=== PATIENT | female | born 1965 | race Caucasian/White ===

== ENCOUNTER 2017-03-27 08:22 | Day surgery (SDC) | payer OTHER ==
[2017-03-23 15:40] VITALS: BMI 40.6
[~2017-03-27 08:22] MED LIST: LACTATED RINGERS 1,000 ML IV SCH
[2017-03-27 09:01] VITALS: RESP 16; TEMP 98.8
[2017-03-27] MEDS ORDERED: PROPOFOL 10 MG/ML 20 ML VIAL IV ONE (09:27)
[2017-03-27 10:11] VITALS: BP 110/70; PULSE 72
--- NOTE | 2017-04-13 07:43 | P.OP ---
Date of Procedure: 03/27/17 Preoperative Diagnosis: Screening Postoperative Diagnosis: Small rectal polyp Procedure(s) Performed: Colonoscopy and snare polypectomy Anesthesia: MAC Surgeon: Judah Isbell Pathology: other (Rectal polyp) Condition: stable Disposition: same day Indications for Procedure: Screening Operative Findings: A small rectal polyp at about 10 cm from the anal verge Description of Procedure: With the patient in the left lateral position rectal digital exam was normal. There were no palpable masses. The video colonoscope was inserted transanally and advanced all the way to the cecum which was entered and well visualized. The mucosa was thoroughly examined. Findings small rectal polyp about 3 mm in diameter sessile hyperplastic in nature. It was removed completely with the snare cautery with good hemostasis. Recommendation; high-fiber diet. Follow-up colonoscopy in about 5 years.
== END 2017-03-27 10:34 | disposition home or self-care (01) ==
LOC: ORWHC2ENDO 08:22
PROVIDERS: ATTEND Surgery
DX: Z12.11 Encounter for screening for malignant neoplasm of colon (principal); K62.1 Rectal polyp; I10 Essential (primary) hypertension; Z72.0 Tobacco use; F32.9 Major depressive disorder, single episode, unspecified; K21.9 Gastro-esophageal reflux disease without esophagitis; F39 Unspecified mood [affective] disorder; J45.909 Unspecified asthma, uncomplicated; Z79.1 Long term (current) use of non-steroidal anti-inflammatories (NSAID); Z79.899 Other long term (current) drug therapy
CPT/HCPCS: 88305; 45385; J2704

== ENCOUNTER → 2017-05-10 | Outpatient (CLI) | payer OTHER ==
--- NOTE | 2017-05-10 11:45 | XR ---
EXAMINATION TYPE: XR chest 2V DATE OF EXAM: 05/10/2017 COMPARISON: 02/07/2009 INDICATION: Cough TECHNIQUE: Frontal and lateral views of the chest are obtained. FINDINGS: The heart size is normal. The pulmonary vasculature is normal. The lungs are clear. IMPRESSION: 1. No acute pulmonary process.
--- NOTE | 2017-05-10 15:37 | US ---
EXAMINATION TYPE: US abdomen complete DATE OF EXAM: 05/10/2017 COMPARISON: NONE CLINICAL HISTORY: R10.0 ACUTE ABDOMINAL PAIN. Intermittent RLQ pain x 6 months, history of appendecto my, obese patient EXAM MEASUREMENTS: Liver Length: 17.2 cm Gallbladder Wall: 0.2 cm CBD: 0.3 cm Spleen: 10.2 cm Right Kidney: 11.3 x 4.4 x 5.0 cm Left Kidney: 11.1 x 5.6 x 4.8 cm Difficult and suboptimal study due to patient body habitus Pancreas: obscured by overlying midline bowel gas Liver: measures in upper limits of normal at 17.2cm, heterogeneous echogenicity without any definite lesions seen at this time Gallbladder: wnl Evidence for sonographic Parsons's sign: no CBD: visualized portions wnl, limited by overlying bowel gas Spleen: visualized portions wnl, limited by rib shadowing and overlying bowel gas Right Kidney: visualized portions wnl, limited by rib shadowing and overlying bowel gas Left Kidney: 4.2 x 3.5 x 3.4cm cystic area mid pole, limited by rib shadowing and overlying bowel ga s Upper IVC: wnl Abd Aorta: visualized portions wnl, limited by overlying midline bowel gas Scanned RLQ area of pain: no abnormalities seen at this time IMPRESSION: 1. Peripelvic cysts or mid left renal cyst 2. No ultrasound abnormality at the level of the patient's abdominal pain right lower quadrant
== END | disposition home or self-care (01) ==
LOC: RADUSWWP 09:40
PROVIDERS: ATTEND Family Medicine
DX: R10.0 Acute abdomen (principal); R05 Cough
CPT/HCPCS: 71020; 76700

== ENCOUNTER 2018-04-11 22:19 | Emergency (ER) | payer BC, OTHER ==
[2018-04-11 22:25] VITALS: RESP 18
[2018-04-11] MEDS ORDERED: SODIUM CHLORIDE 0.9% 1,000 ML IV STA (22:45)
[2018-04-11] MEDS ORDERED: KETOROLAC 30 MG/ML 1 ML VIAL IVP STA (22:45)
[2018-04-11] MEDS ORDERED: ONDANSETRON 4 MG/2 ML VIAL IVP STA (22:45)
--- NOTE | 2018-04-11 22:50 | ED ---
General Adult HPI - General Chief complaint: Chest Pain Stated complaint: Abd Pain Time Seen by Provider: 04/11/18 22:33 Source: patient, family Mode of arrival: ambulatory Limitations: no limitations - History of Present Illness Initial comments: 53-year-old female patient presents to emergency department today for complaints of upper abdominal pain that started approximately one hour ago while at work. Patient states that the pain was intense and did radiate through to her back. She states is her cramping squeezing type pain. Patient states that she felt nauseated for a few moments when the pain started. States that it hurt to take a deep breath. States that she did have some mild sweating. Patient does smoke cigarettes, denies any chest pain, or history of heart disease. States that she does have hypertension and that she does have a family history of cardiac problems. Patient denies any constipation or diarrhea. Denies any vomiting, fever, chills, hematuria, dysuria, urinary frequency, urinary urgency. Patient has had her appendix removed. Patient denies any recent rash, shortness breath, chest pain, numbness, tingling, dizziness, weakness, hematuria, dysuria, urinary urgency, urinary frequency, headache, visual changes, or any other complaints. - Related Data Home Medications Medication Instructions Recorded Confirmed Albuterol Inhaler [Ventolin Hfa 1 - 2 puff INHALATION RT-Q6H PRN 03/23/17 Inhaler] Cholecalciferol [Vitamin D3] 5,000 unit PO DAILY 03/23/17 04/11/18 Escitalopram [Lexapro] 20 mg PO DAILY 03/23/17 04/11/18 Ibuprofen [Motrin] 600 mg PO Q8HR PRN 03/23/17 04/11/18 Losartan [Cozaar] 50 mg PO DAILY 03/23/17 04/11/18 Multivitamins, Thera [Multivitamin 1 tab PO DAILY 03/23/17 04/11/18 (formulary)] Docusate [Colace] 100 mg PO DAILY 04/11/18 04/11/18 Ferrous Sulfate [Feosol] 325 mg PO DAILY 04/11/18 04/11/18 Allergies Allergy/AdvReac Type Severity Reaction Status Date / Time No Known Allergies Allergy Verified 04/11/18 22:48 Review of Systems ROS Statement: Those systems with pertinent positive or pertinent negative responses have been documented in the HPI. ROS Other: All systems not noted in ROS Statement are negative. Past Medical History Past Medical History: GERD/Reflux, Hypertension, Osteoarthritis (OA) History of Any Multi-Drug Resistant Organisms: None Reported Past Surgical History: Appendectomy, Breast Surgery Additional Past Surgical History / Comment(s): laproscopic surgery, rt breast lumpectomy, Past Anesthesia/Blood Transfusion Reactions: Previous Problems w/ Anesthesia Additional Past Anesthesia/Blood Transfusion Reaction / Comment(s): during anesthesia low b/p, slow to wake up Past Psychological History: Anxiety, Depression Smoking Status: Current every day smoker Past Alcohol Use History: None Reported Past Drug Use History: None Reported - Past Family History Brother(s) Family Medical History: Deep Vein Thrombosis (DVT) Sister(s) Family Medical History: Cancer Additional Family Medical History / Comment(s): skin cancer General Exam Limitations: no limitations General appearance: alert, in no apparent distress, other (This is a well- developed, well-nourished adult female patient in no acute distress. Vital signs upon presentation are temperature 97.3F, pulse 79, respirations 18, blood pressure 164/77, pulse ox 99% on room air.) Eye exam: Present: normal appearance, PERRL, EOMI. Absent: scleral icterus, conjunctival injection, periorbital swelling ENT exam: Present: normal exam, normal oropharynx, mucous membranes moist Respiratory exam: Present: normal lung sounds bilaterally. Absent: respiratory distress, wheezes, rales, rhonchi, stridor Cardiovascular Exam: Present: regular rate, normal rhythm, normal heart sounds. Absent: systolic murmur, diastolic murmur, rubs, gallop, clicks GI/Abdominal exam: Present: soft, tenderness (Right upper quadrant tenderness, midepigastric tenderness), normal bowel sounds. Absent: distended, guarding, rebound, rigid Neurological exam: Present: alert, oriented X3, CN II-XII intact Psychiatric exam: Present: normal affect, normal mood Skin exam: Present: warm, dry, intact, normal color. Absent: rash Course Vital Signs 04/11/18 04/12/18 22:22 00:11 Temperature 97.3 F L Pulse Rate 79 70 Respiratory 18 18 Rate Blood Pressure 164/77 135/70 O2 Sat by Pulse 99 97 Oximetry EKG Findings - EKG Comments: EKG Findings:: EKG shows normal sinus rhythm with a ventricular rate is 72, MT interval 174, QRS duration 88, QT 410, QTC 448. No evidence of ST elevation or depression. Medical Decision Making - Medical Decision Making 53-year-old female patient presents the emergency department today for evaluation of upper abdominal pain that radiated into her back. Physical examination did reveal right upper quadrant and midepigastric abdominal tenderness. EKG was within normal range. Labs reviewed and did show an elevated white blood cell count at 12.8. Patient did have AST at 50. Patient was given Zofran and Toradol here in the emergency department. Upon reevaluation patient states that she is pain free and feeling much better. She' ll be discharged home at this time to follow-up with surgery regarding her gallbladder. She is instructed to follow-up with her primary care physician for recheck in 1-2 days. Return parameters discussed in detail. She verbalizes understanding and agrees with this plan. - Lab Data Result diagrams: 04/11/18 22:58 04/11/18 22:58 Lab Results 04/11/18 04/11/18 04/11/18 Range/Units 22:58 22:58 22:58 WBC 12.8 H (3.8-10.6) k/uL RBC 4.68 (3.80-5.40) m/uL Hgb 14.0 (11.4-16.0) gm/dL Hct 42.1 (34.0-46.0) % MCV 90.0 (80.0-100.0) fL MCH 30.0 (25.0-35.0) pg MCHC 33.3 (31.0-37.0) g/dL RDW 12.5 (11.5-15.5) % Plt Count 364 (150-450) k/uL Neutrophils % 63 % Lymphocytes % 30 % Monocytes % 4 % Eosinophils % 2 % Basophils % 0 % Neutrophils # 8.1 H (1.3-7.7) k/uL Lymphocytes # 3.9 (1.0-4.8) k/uL Monocytes # 0.5 (0-1.0) k/uL Eosinophils # 0.2 (0-0.7) k/uL Basophils # 0.0 (0-0.2) k/uL Sodium 142 (137-145) mmol/L Potassium 3.8 (3.5-5.1) mmol/L Chloride 107 (98-107) mmol/L Carbon Dioxide 23 (22-30) mmol/L Anion Gap 12 mmol/L BUN 25 H (7-17) mg/dL Creatinine 0.60 (0.52-1.04) mg/dL Est GFR (CKD-EPI)AfAm >90 (>60 ml/min/1.73 sqM) Est GFR (CKD-EPI)NonAf >90 (>60 ml/min/1.73 sqM) Glucose 83 (74-99) mg/dL Calcium 9.4 (8.4-10.2) mg/dL Total Bilirubin 0.4 (0.2-1.3) mg/dL AST 50 H (14-36) U/L ALT 46 (9-52) U/L Alkaline Phosphatase 77 (38-126) U/L Total Creatine Kinase 57 (30-135) U/L CK-MB (CK-2) 0.9 (0.0-2.4) ng/mL CK-MB (CK-2) Rel Index 1.6 Troponin I <0.012 (0.000-0.034) ng/mL Total Protein 6.9 (6.3-8.2) g/dL Albumin 4.1 (3.5-5.0) g/dL Amylase 48 (30-110) U/L Lipase 95 (23-300) U/L Urine Color Urine Appearance (Clear) Urine pH (5.0-8.0) Ur Specific Hudgins (1.001-1.035) Urine Protein (Negative) Urine Glucose (UA) (Negative) Urine Ketones (Negative) Urine Blood (Negative) Urine Nitrite (Negative) Urine Bilirubin (Negative) Urine Urobilinogen (<2.0) mg/dL Ur Leukocyte Esterase (Negative) Urine RBC (0-5) /hpf Urine WBC (0-5) /hpf Ur Squamous Epith Cells (0-4) /hpf 04/12/18 Range/Units 00:15 WBC (3.8-10.6) k/uL RBC (3.80-5.40) m/uL Hgb (11.4-16.0) gm/dL Hct (34.0-46.0) % MCV (80.0-100.0) fL MCH (25.0-35.0) pg MCHC (31.0-37.0) g/dL RDW (11.5-15.5) % Plt Count (150-450) k/uL Neutrophils % % Lymphocytes % % Monocytes % % Eosinophils % % Basophils % % Neutrophils # (1.3-7.7) k/uL Lymphocytes # (1.0-4.8) k/uL Monocytes # (0-1.0) k/uL Eosinophils # (0-0.7) k/uL Basophils # (0-0.2) k/uL Sodium (137-145) mmol/L Potassium (3.5-5.1) mmol/L Chloride (98-107) mmol/L Carbon Dioxide (22-30) mmol/L Anion Gap mmol/L BUN (7-17) mg/dL Creatinine (0.52-1.04) mg/dL Est GFR (CKD-EPI)AfAm (>60 ml/min/1.73 sqM) Est GFR (CKD-EPI)NonAf (>60 ml/min/1.73 sqM) Glucose (74-99) mg/dL Calcium (8.4-10.2) mg/dL Total Bilirubin (0.2-1.3) mg/dL AST (14-36) U/L ALT (9-52) U/L Alkaline Phosphatase (38-126) U/L Total Creatine Kinase (30-135) U/L CK-MB (CK-2) (0.0-2.4) ng/mL CK-MB (CK-2) Rel Index Troponin I (0.000-0.034) ng/mL Total Protein (6.3-8.2) g/dL Albumin (3.5-5.0) g/dL Amylase (30-110) U/L Lipase (23-300) U/L Urine Color Yellow Urine Appearance Cloudy H (Clear) Urine pH 5.5 (5.0-8.0) Ur Specific [place]gins 1.020 (1.001-1.035) Urine Protein Negative (Negative) Urine Glucose (UA) Negative (Negative) Urine Ketones Trace H (Negative) Urine Blood Negative (Negative) Urine Nitrite Negative (Negative) Urine Bilirubin Negative (Negative) Urine Urobilinogen <2.0 (<2.0) mg/dL Ur Leukocyte Esterase Trace H (Negative) Urine RBC 3 (0-5) /hpf Urine WBC 2 (0-5) /hpf Ur Squamous Epith Cells 6 H (0-4) /hpf - Radiology Data Radiology results: report reviewed Ultrasound of the right upper quadrant abdomen was obtained, report was reviewed in its entirety. Impression by Dr. Alves shows multiple gallstones with no dilated ducts. The common bile duct is borderline dilated at 0.6 cm. Disposition Clinical Impression: Gallstones, Abdominal pain Disposition: HOME SELF-CARE Condition: Good Instructions: Gallstones (ED), Abdominal Pain (ED) Additional Instructions: Increase fluids. Follow-up with your primary care physician as well as a surgeon in 1-2 days for recheck. Return here immediately for any new, worsening , or concerning symptoms. Is patient prescribed a controlled substance at d/c from ED?: No Referrals: Lucio Perez MD [Primary Care Provider] - 1-2 days Inocente Bullard DO [Doctor of Osteopathic Medicine] - 1-2 days Time of Disposition: 00:46
[2018-04-11 23:09] LABS: Basophils % (A) 0 %; Eosinophils # (A) 0.2 k/uL (0-0.7); Eosinophils % (A) 2 %; HCT 42.1 % (34.0-46.0); Lymphocytes # (A) 3.9 k/uL (1.0-4.8); Lymphocytes % (A) 30 %; MCHC 33.3 g/dL (31.0-37.0); Mean Platelet Volume 6.3; Monocytes # (A) 0.5 k/uL (0-1.0); Monocytes % (A) 4 %; Neutrophils # (A) 8.1 k/uL (1.3-7.7); Neutrophils % (A) 63 %; Platelet Count 364 k/uL (150-450); RBC 4.68 m/uL (3.80-5.40); RDW 12.5 % (11.5-15.5); WBC 12.8 k/uL (3.8-10.6)
[2018-04-11 23:18] LABS: ALT 46 U/L (9-52); AST 50 U/L (14-36); Albumin 4.1 g/dL (3.5-5.0); Alkaline Phosphatase 77 U/L (38-126); Amylase 48 U/L (30-110); Anion Gap 12 mmol/L; Blood Urea Nitrogen 25 mg/dL (7-17); Calcium 9.4 mg/dL (8.4-10.2); Carbon Dioxide 23 mmol/L (22-30); Chloride 107 mmol/L (98-107); Glucose 83 mg/dL (74-99); Lipase 95 U/L (23-300); Potassium 3.8 mmol/L (3.5-5.1); Sodium 142 mmol/L (137-145); Total Bilirubin 0.4 mg/dL (0.2-1.3); Total Protein 6.9 g/dL (6.3-8.2)
[2018-04-11 23:33] LABS: Creatine Kinase 57 U/L (30-135)
[2018-04-11 23:46] LABS: Creatine Kinase MB 0.9 ng/mL (0.0-2.4); Troponin I <0.012 ng/mL (0.000-0.034)
[2018-04-12 00:31] LABS: Appearance,Urine Cloudy (Clear); Bilirubin,Urine Negative (Negative); Blood,Urine Negative (Negative); Color,Urine Yellow; Glucose,Urine (UA) Negative (Negative); Ketones,Urine Trace (Negative); Leukocyte Esterase,Urine Trace (Negative); Nitrite,Urine Negative (Negative); PH, Urine 5.5 (5.0-8.0); Protein,Urine Negative (Negative); RBC,Urine 3 /hpf (0-5); Squamous Epithelial Cell,Urine 6 /hpf (0-4); Urobilinogen,Urine <2.0 mg/dL (<2.0); WBC,Urine 2 /hpf (0-5)
--- NOTE | 2018-04-12 00:36 | US ---
EXAMINATION TYPE: US abdomen limited DATE OF EXAM: 04/12/2018 COMPARISON: US 2017 CLINICAL HISTORY: RUQ pain. Abdomen pain and nausea x 1 day EXAM MEASUREMENTS: Liver Length: 16.8 cm Gallbladder Wall: 0.2 cm CBD: 0.6 cm Right Kidney: 9.0 x 4.3 x 5.2 cm Pancreas: visualized portions wnl, limited by overlying midline bowel gas Liver: mildly heterogeneous without any definite lesions seen at this time Gallbladder: multiple small echogenic shadowing foci, wall measures wnl Evidence for sonographic Parsons's sign: yes CBD: borderline dilated at 0.6cm Right Kidney: wnl IMPRESSION: Multiple gallstones. No dilated ducts.
[2018-04-12 01:15] VITALS: BP 114/56; PULSE 59; TEMP 97.1
== END 2018-04-12 01:14 | disposition home or self-care (01) ==
LOC: EC 22:19
DX: K80.80 Other cholelithiasis without obstruction (principal); D72.829 Elevated white blood cell count, unspecified; I10 Essential (primary) hypertension; F32.9 Major depressive disorder, single episode, unspecified; F41.9 Anxiety disorder, unspecified; F17.200 Nicotine dependence, unspecified, uncomplicated; Z79.899 Other long term (current) drug therapy; Z90.49 Acquired absence of other specified parts of digestive tract
CPT/HCPCS: 36415; 93005; 80053; 82150; 82550; 82553; 83690; 84484; 85025; 99285; 96374; 96375; 96361; J2405; J1885; 76705; 81001

== ENCOUNTER 2018-04-26 09:30 | Day surgery (SDC) | payer BC, OTHER ==
[2018-04-25 12:51] VITALS: BMI 31.7
[~2018-04-26 09:30] MED LIST changes: +DEXAMETHASONE SOD PHOSPHATE 10 MG/ML 1 ML VIAL IV ONE; +HEPARIN SODIUM,PORCINE 5,000 UNIT/ML 1 ML VIAL SQ ONE; +LIDOCAINE 1% 20 ML VIAL (10MG/ML) FOR IV START INTRADERMA PRN; +MIDAZOLAM 2 MG/2 ML VIAL IV PRN; +SCOPOLAMINE 1.5MG/72HR PATCH TRANSDERM ONE; +ceFAZolin IN SWFI 2 GM/20 ML SYRINGE IVP ONE; +fentaNYL (PF) 50 MCG/ML 2 ML AMP IV PRN
[2018-04-26] MEDS ORDERED: ONDANSETRON 4 MG/2 ML VIAL IVP ONE (10:04)
[2018-04-26] MEDS ORDERED: KETOROLAC 30 MG/ML 1 ML VIAL ONE (10:30)
[2018-04-26] MEDS ORDERED: PROPOFOL 10 MG/ML 20 ML VIAL IV ONE (10:30)
[2018-04-26] MEDS ORDERED: SUCCINYLCHOLINE CHLORIDE 100 MG/5 ML SYR IV ONE (10:30)
[2018-04-26] MEDS ORDERED: LIDOCAINE 1% INJ 10MG/ML (20 ML MDV) ONE (10:30)
[2018-04-26] MEDS ORDERED: fentaNYL (PF) 50 MCG/ML 2 ML AMP ONE (10:30)
[2018-04-26] MEDS ORDERED: MIDAZOLAM 2 MG/2 ML VIAL ONE (10:30)
[2018-04-26] MEDS ORDERED: GLYCOPYRROLATE 0.2 MG/ML 2 ML VIAL ONE (10:30)
[2018-04-26] MEDS ORDERED: NEOSTIGMINE 1 MG/ML 10 ML VIAL ONE (10:30)
[2018-04-26] MEDS ORDERED: ROCURONIUM BROMIDE 10 MG/ML 10 ML VIAL IV ONE (10:30)
[2018-04-26] MEDS ORDERED: LIDOCAINE 2%-EPI 1:200,000 20 ML VIAL SQ ONE ×2 (10:46)
[2018-04-26] MEDS ORDERED: BUPIVACAINE (PF) 0.5% 30 ML VIAL SQ ONE ×2 (10:46)
[2018-04-26] MEDS ORDERED: LACTATED RINGERS 1,000 ML IV ONE (11:26)
--- NOTE | 2018-04-26 11:29 | P.OP ---
Date of Procedure: 04/26/18 Preoperative Diagnosis: Symptomatic Cholelithiasis Postoperative Diagnosis: same Procedure(s) Performed: Laparoscopic cholecystectomy Anesthesia: ZAIRA Surgeon: Inocente Bullard Estimated Blood Loss (ml): 5 Condition: stable Disposition: PACU Indications for Procedure: 53-year-old female presented to my office with symptomatic cholelithiasis she was described the risks benefits and alternatives to laparoscopic cholecystectomy including risks of bleeding infection damage to surrounding tissue need for further operation damage to common bile duct and need for conversion to open she stated she understood agreed and consented informed consent was obtained Description of Procedure: Patient was brought into the operative suite remained in the supine position she was prepped and draped in the usual sterile fashion timeout was performed correct patient correct procedure correct site was verified. A 12 mm incision was made just to the right of the umbilicus and using a 12 mm Visiport the abdomen was entered under direct visualization and insufflated. No injuries were noted. 35 mm ports were placed in the right upper quadrant under direct visualization. The gallbladder was identified and retracted cephalad. Adhesions to the gallbladder from the omentum were taken down bluntly. The cystic duct and cystic artery were skeletonized critical view was obtained and they were duly clipped and ligated. The gallbladder was then removed from the liver bed using Bovie electrocautery. Hemostasis was achieved. The gallbladder was then removed to the umbilical port site with an Endo Catch bag. The liver bed was then copiously irrigated and suctioned. Hemostasis was once again noted. The periumbilical port site fascia was closed with 0 Vicryl with 8 of a Chung-Sascha suture passer in a [id number] fashion. Abdomen was desufflated and all ports removed under direct visualization. Skin was closed using 4-0 Vicryl subcuticular sutures and skin glue vision tolerated procedure well no apparent complications Plan - Discharge Summary New Discharge Prescriptions: No Action Multivitamins, Thera [Multivitamin (formulary)] 1 tab PO DAILY Losartan [Cozaar] 50 mg PO DAILY Escitalopram [Lexapro] 20 mg PO DAILY Cholecalciferol [Vitamin D3] 5,000 unit PO DAILY Albuterol Inhaler [Ventolin Hfa Inhaler] 1 - 2 puff INHALATION RT-Q6H PRN PRN Reason: Dyspnea Ferrous Sulfate [Feosol] 325 mg PO MOWEFR Docusate [Colace] 100 mg PO DAILY Discharge Medication List Albuterol Inhaler [Ventolin Hfa Inhaler] 1 - 2 puff INHALATION RT-Q6H PRN [History] Cholecalciferol [Vitamin D3] 5,000 unit PO DAILY 03/23/17 [History] Escitalopram [Lexapro] 20 mg PO DAILY 03/23/17 [History] Losartan [Cozaar] 50 mg PO DAILY 03/23/17 [History] Multivitamins, Thera [Multivitamin (formulary)] 1 tab PO DAILY 03/23/17 [History ] Docusate [Colace] 100 mg PO DAILY 04/11/18 [History] Ferrous Sulfate [Feosol] 325 mg PO MOWEFR 04/11/18 [History]
[2018-04-26 11:44] VITALS: TEMP 97.4
[2018-04-26 12:56] VITALS: BP 107/54; PULSE 58; RESP 18
[2018-04-26] MEDS ORDERED: HYDROcodone/APAP 5-325MG 1 EACH TAB PO ONE (12:56)
== END 2018-04-26 13:33 | disposition home or self-care (01) ==
LOC: OR 09:30
PROVIDERS: ATTEND Student in an Organized Health Care Education/Training Program
DX: K80.10 Calculus of gallbladder with chronic cholecystitis without obstruction (principal); K66.0 Peritoneal adhesions (postprocedural) (postinfection); M19.90 Unspecified osteoarthritis, unspecified site; J45.909 Unspecified asthma, uncomplicated; I10 Essential (primary) hypertension; F41.9 Anxiety disorder, unspecified; F32.9 Major depressive disorder, single episode, unspecified; K21.9 Gastro-esophageal reflux disease without esophagitis; G43.909 Migraine, unspecified, not intractable, without status migrainosus; F17.210 Nicotine dependence, cigarettes, uncomplicated; Z79.1 Long term (current) use of non-steroidal anti-inflammatories (NSAID); Z79.899 Other long term (current) drug therapy; Z82.49 Family history of ischemic heart disease and other diseases of the circulatory system; Z83.3 Family history of diabetes mellitus
CPT/HCPCS: 47562; 88304; J2250; J1644; J1100; J2710; J2405; J2001; J3010; J1885; J0330; J2704; J0690